=== PATIENT | male | born 1995 | race Caucasian/White ===

== ENCOUNTER 2022-03-08 01:02 | Emergency (ER) | payer OTHER ==
[2022-03-08] MEDS ORDERED: HYDROmorphone 0.5 MG/0.5 ML Syringe ONE (01:05)
[2022-03-08] MEDS ORDERED: cefTRIAXone 2 GM Vial IVPUSH ONE (01:12)
[2022-03-08] MEDS ORDERED: HYDROmorphone 0.5 MG/0.5 ML Syringe IVPUSH ONE (01:29)
== END 2022-03-08 03:15 ==
LOC: DL.ED 01:02
DX: S69.92XA Unspecified injury of left wrist, hand and finger(s), initial encounter (principal); W22.8XXA Striking against or struck by other objects, initial encounter
CPT/HCPCS: 73130; 96374; 96375; 99285; J0696; J1170